=== PATIENT | female | born 1970 | race Caucasian/White ===

== ENCOUNTER 2017-12-30 12:57 | Day surgery (SDC) | payer OTHER ==
[~2017-12-30] VITALS: Ht 157.5 cm; Wt 84.4 kg
[~2017-12-30 12:57] MED LIST: ALBU90OI; ALBU90OI6 INH; BUDE10.22 INH; CLON.5; CLON1 PO; Cyclobenzaprine5 MG; Cyclobenzaprine5 MG PO; DULO60; FAMO20 PO; GABA300 PO; GABA600 PO; HYDCHL12.5 PO; HYDR-86; IBUP600 PO; LAMO100 PO; LAMO25 PO; LORA.5 PO; LORA1 PO; NAPR220; Norco 7.5-3251 EACH PO; PANT40 PO; PRAZ2 PO; QUET25 PO; SERT100 PO; TRAZ150T57; UROCIT-K15 MEQ PO; VENL150ER; Ventolin5 MG/1 ML INH
== END 2017-12-30 16:51 | disposition home or self-care (01) ==
LOC: ORSCSDS 12:57
PROVIDERS: Orthopaedic Surgery
PROC: 0SBC4ZZ Excision of Right Knee Joint, Percutaneous Endoscopic Approach (ICD-10-PCS; principal; 2017-12-30 14:30)
DX: S83.281A Other tear of lateral meniscus, current injury, right knee, initial encounter (principal); M94.261 Chondromalacia, right knee; J45.909 Unspecified asthma, uncomplicated; M79.7 Fibromyalgia; E66.9 Obesity, unspecified; Z68.34 Body mass index [BMI] 34.0-34.9, adult; Z79.899 Other long term (current) drug therapy
CPT/HCPCS: J0171; J0690; J1100; J2250; J2405; J3010; J7120